=== PATIENT | female | born 1965 | race Caucasian/White ===

== ENCOUNTER 2019-10-07 11:49 | Emergency (ER) | payer OTHER ==
[~2019-10-07] VITALS: Ht 162.6 cm; Wt 52.3 kg
[2019-10-07] MEDS ORDERED: HYDROcodone/acetaminophen 5mg/325mg tablet PO ONE (12:15)
[2019-10-07] MEDS ORDERED: LIDOcaine 1% W/epiNEPHrine 1:200,000 10ml vial IJ ONE ×3 (12:15→14:10)
[2019-10-07 15:01] VITALS: BP 131/67
[2019-10-07] MEDS ORDERED: cephalexin 250mg capsule PO ONE (15:10)
[2019-10-07] MEDS ORDERED: CEPH-572 PO (15:13)
[2019-10-07] MEDS ORDERED: HYDR-4353 PO (15:13)
== END 2019-10-07 15:49 | disposition home or self-care (01) ==
LOC: ER 11:51
DX: S62.614A Displaced fracture of proximal phalanx of right ring finger, initial encounter for closed fracture (principal); S62.616A Displaced fracture of proximal phalanx of right little finger, initial encounter for closed fracture; S61.314A Laceration without foreign body of right ring finger with damage to nail, initial encounter; S61.316A Laceration without foreign body of right little finger with damage to nail, initial encounter; F17.200 Nicotine dependence, unspecified, uncomplicated; Z79.899 Other long term (current) drug therapy; W26.8XXA Contact with other sharp object(s), not elsewhere classified, initial encounter; Y93.89 Activity, other specified; Y92.814 Boat as the place of occurrence of the external cause; Y99.8 Other external cause status
CPT/HCPCS: 12004; 73130; 99283; 99284